=== PATIENT | female | born 1940 | race Caucasian/White ===

== ENCOUNTER 2017-05-29 08:40 | Inpatient (IN) | payer OTHER ==
[~2017-05-29] VITALS: Ht 152.4 cm; Wt 69.9 kg
[~2017-05-29 08:40] MED LIST: ADVAIR 100-501 EACH INH; CARDIZEM CD360 MG PO; CARDIZEM LA240 M1 PO; CLONAZEPAM 1 MG1 M1 PO; FUROSEMIDE PO; GLUCOPHAGE1000 MG PO; IMDUR 30 MG TAB30 M1 PO; LANOXIN 0.120.125 M1 PG; LASIX 20 MG TAB20 MG PO; LIPOFEN; LISINOPRIL5 MG PO; LOPRESSOR 50 MG50 M1 PO; LYRICA150 MG PO; NEURONTIN 300300 M1 PO; POTASSIUM CHLO10 ME1 PO; TRICOR145 MG PO; VITAMIN D-32000 UNIT PO
[2017-05-29 10:37] LABS: HEMATOCRIT 42.1 % (37.0-47.0); MCH 29.9 pg (26.0-34.0); MCHC 33.2 g/dL (28.0-37.0); MCV 89.9 fL (80.0-100.0); MPV 7.9 fl. (7.2-11.1); RBC 4.69 mil/uL (4.20-5.00); RDW-CV 13.7 % (10.5-14.5); WBC 6.8 thou/uL (4.0-11.0)
[2017-05-29 10:41] LABS: CALCIUM 8.8 mg/dL (8.5-10.1); CREATININE 0.7 mg/dL (0.6-1.3); POTASSIUM 4.4 mmol/L (3.5-5.1)
[2017-05-29 10:46] LABS: ALBUMIN 3.8 g/dL (3.4-5.0); TOTAL BILIRUBIN 0.5 mg/dL (<0.1-1.0); TOTAL PROTEIN 7.5 g/dL (6.4-8.2)
[2017-05-29] MEDS ORDERED: TOUJEO SOL300 UNIT/1 SUBQ ×3 (11:35→13:21)
[2017-05-29 11:36] VITALS: BP 133/74
--- NOTE | 2017-05-29 15:44 | EKG ---
[place] [address] ELECTROCARDIOGRAM REPORT Name: JORDYN COFFEY Room: [place] [address] ADM IN M.R.#: [id number] Admission: 05/29/17 Attend Phys: Jeremiah Garcia MD Discharge: Date of : 40 Report #: [id number] THIS REPORT FOR: //name// [facility] Test Date: 2017-05-29 Test Time: 10:28:56 Pat Name: JORDYN COFFEY Department: Room: [place] [address] Gender: F Radiographic Technologist: 27 : 1940 Requested By: Jeremiah Garcia Order Number: [id number] Rhea MD: Davion Ruano Measurements Intervals [place] Rate: 73 P: 57 [place]: 159 QRS: -9 QRSD: 97 T: 19 QT: 439 QTc: 484 Interpretive Statements Sinus rhythm Borderline T abnormalities, lateral leads Compared to ECG 12/29/2013 02:29:17 T-wave abnormality now present ST (T wave) deviation no longer present Electronically Signed On 05-29-2017 15:44:31 APPLICATIONS SUPPORT LEAD by Davion Ruano [email or web address] <ELECTRONICALLY SIGNED> By: Davion Ruano MD, [facility] 05/29/17 1544 1028 1028 Davion Ruano MD, [facility] /EPI
[2017-05-29 17:28] VITALS: BP 105/49
--- NOTE | 2017-05-29 19:33 | NUR ---
BAO RESTING IN BED. UNEVENTFUL DAY. VITAL SIGNS STABLE, NSR UP AD VERONICA. JEEVAN IS HERE FOR SOTALOL LOADING. HOURLY ROUNDING COMPLETED FOR PATIENT SAFETY AND MARY JANE PARTICIPATED IN PLAN OF CARE.
[2017-05-29 21:00] VITALS: BP 123/66
[2017-05-29 23:30] VITALS: BP 131/62
--- NOTE | 2017-05-30 03:50 | NUR ---
BEGAN CARE OF PT AT 1930, PT A/OX4, SR, RA, UP SBA/AD VERONICA, NO IV WITH DR YEAGER REPORTING NO IV IS NEEDED, ORDER ENTERED STATING SUCH, MEDS/ASSESSMENT PER CHARTING, HOURLY ROUNDING CONT, FALL PRECUATIONS IN PLACE, PT FREE FROM SOA/PAIN, CALL LIGHT IN REACH, WILL CONT TO MONITOR.
[2017-05-30 03:59] VITALS: BP 125/61
--- NOTE | 2017-05-30 06:59 | NUR ---
NO ACUTE CHANGES WITH PT OVER NIGHT, VS REMAIN STABLE, SR ON THE MONITOR, NO C/O PAIN/SOA, FALL PRECAUTIONS REMAIN IN PLACE, CALL LIGHT IN REACH AT ALL TIMES, WILL CONT TO MONITOR.
[2017-05-30 12:00] VITALS: BP 125/61
--- NOTE | 2017-05-30 13:29 | NUR ---
MET WITH PT TO DISCUSS HOME SITUATION/DC PLANNING. PT LIVES ALONE, HAS SUPPORTIVE FAMILY WHO ASSIST. SHE USES CANE AND IS INDEPENDENT AND ACTIVE. STILL DRIVES. DENIES ANY DC NEEDS. WILL FOLLOW
[2017-05-30 16:00] VITALS: BP 113/58
--- NOTE | 2017-05-30 17:03 | EKG ---
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: JOHN : 1940 Requested By: Jeremiah Garcia Order Number: [id number] Reading MD: Jermeiah Garcia Measurements Intervals [place] Rate: 77 P: 54 [place]: 158 QRS: -9 QRSD: 103 T: 6 QT: 400 QTc: 453 Interpretive Statements Sinus rhythm Borderline T wave abnormalities Compared to ECG 05/29/2017 10:28:56 No significant changes Electronically Signed On 05-30-2017 17:03:39 SEAMLESS TUBE MILL OPERATOR by Jeremiah Garcia [email or web address] <ELECTRONICALLY SIGNED> By: Jeremiah Garcia MD, [facility] 05/30/17 1703 D: [id number] Jeremiah Garcia MD, FACC /EPI
--- NOTE | 2017-05-30 19:10 | NUR ---
PATINET RESTING IN ROOM. UP AD VERONICA IN ROOM. PATINET HERE FOR SOTALOL LOADING. VITAL SIGNS STABLE ANDPAITNET IN NOAPPARENT DISTRESS AT THIS TIME. NSR ON MONITOR. PATINET EXPECTED TO DISCHARGE TO HOME TOMORROW AFTER SOTALOL LOADING IS COMPLETED. HOURLY ROUNDING COMPETED FOR PATINET SAFETY.
[2017-05-30 20:00] VITALS: BP 119/45
[2017-05-31] VITALS: BP 127/55
[2017-05-31 04:00] VITALS: BP 120/69
--- NOTE | 2017-05-31 04:35 | NUR ---
RESTING WITHOUT COMPLAINTS. BPS AND PULSE WITHIN NORMAL LIMITS. DENIES COMPLAINTS OF PAIN OR DISCOMFORT. UP AD VERONICA WITH STEADY GAIT. BED IN LOW POSITION, CALL LIGHT WITHIN REACH. NO SIGN OF DISTRESS AT THIS TIME. CONT. WITH CURRENT PLAN OF CARE AT THIS TIME.
[2017-05-31 08:15] VITALS: BP 123/72
--- NOTE | 2017-05-31 08:49 | NUR ---
ASSUMED PT. CARE AND RECEIVED REPORT AT 0730. PT A/OX4, VSS, MONITOR ON TRACING SR. PT. DENIES PAIN, EXCEPT CHRONIC LEG PAIN WHICH IS TREATED WITH NEUROTIN. FULL ASSESSMENT COMPLETED, REFER TO CHARTING. PT. ANTICIPATEDS DC TODAY. UP TO CHAIR FOR BREAKFAST. CALL LIGHT IN REACH, WILL CONTINUE WITH PLAN OF CARE.
[2017-05-31 11:07] VITALS: BP 123/72
[2017-05-31 11:09] VITALS: BP 123/72
[2017-05-31 11:36] VITALS: BP 103/52
[2017-05-31] MEDS ORDERED: XARELTO20 MG PO (11:36)
[2017-05-31] MEDS ORDERED: ATORVASTATIN CA40 MG PO (11:36)
[2017-05-31] MEDS ORDERED: SORINE 80 MG TA80 M1 PO (11:36)
[2017-05-31] MEDS ORDERED: ASPIR 8181 MG PO (11:37)
--- NOTE | 2017-05-31 12:45 | NUR ---
DC ORDERS RECEIVED. MONITOR REMOVED. PT. GIVEN DC INSTRUCTIONS, SCRIPTS, AND CARENOTES. PT. LEFT WITH FAMILY TO RETURN HOME IN PERSONAL VEHICLE, ALL BELONINGS ACCOUNTED FOR.
--- NOTE | 2017-05-31 17:58 | EKG ---
[place] [address] ELECTROCARDIOGRAM REPORT Name: JORDYN COFFEY Room: [place] [address] DIS IN M.R.#: [id number] Admission: 05/29/17 Attend Phys: Jeremiah Garcia MD Discharge: 05/31/17 Date of : 40 Report #: [id number] THIS REPORT FOR: //name// [facility] Test Date: 2017-05-31 Test Time: 09:16:07 Pat Name: JORDYN COFFEY Department: Room: [place] [address] Gender: F Sales Team Member: : 1940 Requested By: Jeremiah Garcia Order Number: [id number] Reading MD: Jeremiah Garcia Measurements Intervals [place] Rate: 69 P: 59 [place]: 154 QRS: -2 QRSD: 102 T: 15 QT: 409 QTc: 438 Interpretive Statements Sinus rhythm Minimal ST depression, anterolateral leads Compared to ECG 05/30/2017 09:35:23 ST (T wave) deviation now present T-wave abnormality no longer present Electronically Signed On 05-31-2017 17:58:01 CLINICAL NURSING PROFESSOR by Jeremiah Garcia [email or web address] <ELECTRONICALLY SIGNED> By: Jeremiah Garcia MD, FACC 05/31/17 1758 0916 Jeremiah Garcia MD, FACC /EPI
--- NOTE | 2017-06-16 18:01 | H ---
[address] [address] HISTORY AND PHYSICAL Name: JORDYN COFFEY Room: [address] IN M.R.#: [id number] Admission: 05/29/17 Attend Phys: Jeremiah Garcia MD Discharge: 05/31/17 Date of : 40 Report #: [id number] THIS REPORT FOR: //name// CC: Jeremiah Lopes DO REASON FOR ADMISSION: Sotalol loading. HISTORY OF PRESENT ILLNESS: The patient is a 76-year-old white female with paroxysmal atrial fibrillation. She is being admitted for sotalol loading. By echocardiogram, she has an ejection fraction of 50-55%. She has grade 1 diastolic heart failure. A nuclear stress test was normal. PAST MEDICAL HISTORY: 1. Paroxysmal atrial fibrillation. 2. Hypertension. 3. Hyperlipidemia. 4. Type 2 diabetes mellitus. 5. MS. HOME MEDICATIONS: Albuterol p.r.n., aspirin 81 mg daily, atorvastatin 40 mg daily, Celexa 20 mg daily, digoxin 125 mcg daily, diltiazem 360 mg daily, Advair Diskus 250/50 daily, gabapentin as directed, ____ as directed, DuoNeb inhaler as directed, isosorbide 20 mg as directed, lisinopril 5 mg as directed, prednisone taper as directed and ____ as directed. FAMILY HISTORY: Noncontributory. SOCIAL HISTORY: The patient does not smoke or drink alcohol. ALLERGIES: LIDOCAINE, ASPIRIN, CELEBREX, HYDROCODONE, SINGULAIR, AND ____. REVIEW OF SYSTEMS: Positive for palpitations, cough, shortness of breath, dizziness and lightheadedness, otherwise unremarkable. PHYSICAL EXAMINATION: VITAL SIGNS: Blood pressure 144/66 and heart rate 80. GENERAL: This is a pleasant elderly female, in no distress. Mood and affect appropriate. HEENT: Extraocular muscles are intact. Mucous membranes are moist. NECK: Shows no jugular venous distention. CHEST: Reveals clear lung peralta without wheezes, rales or rhonchi. CARDIOVASCULAR: Reveals a regular rhythm without gallop or murmur. ABDOMEN: Reveals normal bowel sounds. The abdomen is soft and nontender. EXTREMITIES: Shows no edema. Peripheral pulses 2+ and palpable. SKIN: [place] [address] HISTORY AND PHYSICAL Name: JORDYN COFFEY Room: [address]#: [id number] Admission: 05/29/17 Attend Phys: Jeremiah Garcia MD Discharge: 05/31/17 Date of : 40 Report #: [id number] IMPRESSION AND RECOMMENDATIONS: 1. Paroxysmal atrial fibrillation. Planned sotalol loading during this hospitalization. The patient is on Xarelto for anticoagulation. 2. Hypertension. Adequately controlled at this time. 3. Hyperlipidemia. Continue atorvastatin at current dose. <ELECTRONICALLY SIGNED> By: Jeremiah Garcia MD, FACC 06/16/17 1801 1841 1932Michaemadelyn Garcia MD, IMAN /nt
--- NOTE | 2017-06-16 18:01 | D ---
[facility] [address] [place] [address] DISCHARGE SUMMARY Name: JORDYN COFFEY Room: [address] IN M.R.#: [id number] Admission: 05/29/17 Attend Phys: Jeremiah Garcia MD Discharge: 05/31/17 Date of : 40 Report #: [id number] THIS REPORT FOR: //name// CC: Jeremiah Garcia Alberto Marianne DATE OF SERVICE: 05/31/2017 DISCHARGE DIAGNOSES: 1. Paroxysmal atrial fibrillation. 2. Hypertension. 3. Hyperlipidemia. 4. Type 2 diabetes mellitus . PROCEDURES DURING THE HOSPITALIZATION: 1. Telemetry monitoring. 2. Sotalol loading. 3. Serial echocardiograms. HOSPITAL COURSE: The patient was admitted for elective sotalol loading. Her hospital course was . She remained in sinus rhythm. QT intervals were within normal limits. She was discharged to home in stable condition. DISCHARGE MEDICATIONS: Include sotalol 80 mg p.o. b.i.d. and Xarelto 20 mg with dinner. DISPOSITION: The patient will follow up with cardiology in 1-2 weeks. <ELECTRONICALLY SIGNED> By: Jeremiah Garcia MD, [facility] 06/16/17 1801 1842 09Miceliza Garcia MD, FACC /nt
== END 2017-05-31 13:16 | disposition home or self-care (01) | DRG 309 ==
LOC: M.2W 08:40
PROVIDERS: ADMIT Internal Medicine Cardiovascular Disease
DX: I48.0 Paroxysmal atrial fibrillation (principal); I50.32 Chronic diastolic (congestive) heart failure; E78.5 Hyperlipidemia, unspecified; G35 Multiple sclerosis; I11.0 Hypertensive heart disease with heart failure; I47.1 Supraventricular tachycardia; E11.9 Type 2 diabetes mellitus without complications; Z79.899 Other long term (current) drug therapy; Z88.6 Allergy status to analgesic agent; Z88.8 Allergy status to other drugs, medicaments and biological substances

== ENCOUNTER 2018-03-06 11:53 | Inpatient (IN) | payer OTHER ==
[~2018-03-06] VITALS: Ht 152.4 cm; Wt 68.5 kg
[~2018-03-06 11:53] MED LIST changes: +ASPIR 8181 MG PO; +ATORVASTATIN CA40 MG PO; +SORINE 80 MG TA80 M1 PO; +TOUJEO SOL300 UNIT/1 SUBQ; +XARELTO20 MG PO
[2018-03-06 11:55] VITALS: BP 129/68
[2018-03-06 12:12] LABS: HEMATOCRIT 36.2 % (37.0-47.0); MCH 28.6 pg (26.0-34.0); MCHC 33.3 g/dL (28.0-37.0); MCV 85.8 fL (80.0-100.0); MPV 7.6 fl. (7.2-11.1); NUCLEATED RBCS 0 /100WBC; PLATELET COUNT* 190 thou/uL (150-400); RBC 4.21 mil/uL (4.20-5.00); RDW-CV 14.4 % (10.5-14.5); WBC 12.1 thou/uL (4.0-11.0)
[2018-03-06 12:18] LABS: CALCIUM 8.5 mg/dL (8.5-10.1); CREATININE 0.7 mg/dL (0.6-1.3); POTASSIUM 3.1 mmol/L (3.5-5.1)
[2018-03-06 12:20] LABS: APTT 29.6 Seconds (25.0-31.3); INR 1.2; PROTIME 12.2 Seconds (9.20-11.50)
[2018-03-06 12:25] LABS: TOTAL BILIRUBIN 0.7 mg/dL (<0.1-1.0)
[2018-03-06 12:27] LABS: TROPONIN-I LEVEL 1.13 ng/mL (<0.06)
[2018-03-06 12:52] LABS: ABSOLUTE BASOPHILS 0.1 thou/uL (0.0-0.2); ABSOLUTE LYMPHOCYTES 0.4 thou/uL (0.8-5.3); ABSOLUTE MONOCYTES 0.4 thou/uL (0.0-1.2); ABSOLUTE NEUTROPHILS 11.3 thou/uL (1.6-8.1); ANISOCYTOSIS 1+; PLATELET ESTIMATE ADEQUATE; POIKILOCYTOSIS 1+
[2018-03-06 13:13] LABS: URINE BILIRUBIN NEGATIVE (Negative); URINE BLOOD 3+ (Negative); URINE CLARITY CLEAR; URINE COLOR YELLOW; URINE GLUCOSE-RANDOM 1+ (Negative); URINE KETONES TRACE (Negative); URINE LEUKOCYTES-REFLEX 1+ (Negative); URINE NITRITE-REFLEX POSITIVE (Negative); URINE PROTEIN 1+ (Negative); URINE UROBILINOGEN 0.2 E.U./dl (0.2-1.0)
[2018-03-06 13:30] VITALS: BP 104/54
[2018-03-06 13:30] LABS: SQUAMOUS 4-10 Moderate /LPF (0-3); URINE RBC 3-10 Few /HPF (0-2)
[2018-03-06 13:31] LABS: CASTS None Seen /LPF (None Seen); CRYSTALS None Seen /LPF (None Seen)
[2018-03-06 14:37] LABS: CHOLESTEROL 78 mg/dL (<200); HDL CHOLESTEROL 42 mg/dL (>40); LDL CHOLESTEROL 27 mg/dL (<100); TC:HDL 1.9 Ratio (Not establshd); TRIGLYCERIDE 48 mg/dL (<150); VLDL 10 mg/dL (<40)
[2018-03-06 14:40] LABS: SERUM ASSESSMENT Clear
[2018-03-06 14:44] VITALS: BP 108/54
[2018-03-06 15:05] VITALS: BP 108/54
--- NOTE | 2018-03-06 16:38 | NUR ---
PT ARRIVED TO UNIT AROUND 1330. ASSESSMENT CHARTED. AFEBRILE. MEDS GIVEN. VITALS STABLE. WILL CONTINUE TO MONITOR.
--- NOTE | 2018-03-06 17:31 | EKG ---
[place] [address] ELECTROCARDIOGRAM REPORT Name: JORDYN COFFEY Room: [address] ADM IN M.R.#: [id number] Admission: 03/06/18 Attend Phys: René Gusman MD Discharge: Date of : 40 Report #: [id number] THIS REPORT FOR: //name// 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[employer] [place]: KATE : 1940 Requested By: Shreya Gonzalez Order Number: [id number] MD: Arthur Sullivan Measurements Intervals [place] Rate: 103 P: 55 [place]: 146 QRS: -9 QRSD: 90 T: -31 QT: 316 QTc: 414 Interpretive Statements Sinus tachycardia Ventricular bigeminy Nonspecific repol abnormality, diffuse leads Compared to ECG 05/31/2017 09:16:07 Ventricular premature complex(es) now present Sinus rhythm no longer present Electronically Signed On 03-06-2018 17:30:50 CDT by Arthur Sullivan [email or web address] <ELECTRONICALLY SIGNED> By: Arthur Sullivan MD, [facility] 03/06/18 1730 1216 1216 Arthur Sullivan MD, [facility] /EPI
[2018-03-06 19:20] VITALS: BP 103/55
[2018-03-07] VITALS (8 sets, daily range): BP systolic 101–133; BP diastolic 42–93
[2018-03-07 05:00] LABS: ABSOLUTE BASOPHILS 0.1 thou/uL (0.0-0.2); ABSOLUTE EOSINOPHILS 0.2 thou/uL (0.0-0.7); ABSOLUTE LYMPHOCYTES 1.8 thou/uL (0.8-5.3); ABSOLUTE NEUTROPHILS 7.5 thou/uL (1.6-8.1); BASOPHILS 0.5 %; EOSINOPHILS 1.7 %; HEMATOCRIT 28.2 % (37.0-47.0); LYMPHOCYTES 17.2 %; MCH 29.1 pg (26.0-34.0); MCHC 33.1 g/dL (28.0-37.0); MCV 87.8 fL (80.0-100.0); MONOCYTES 9.9 %; MPV 8.1 fl. (7.2-11.1); NUCLEATED RBCS 0 /100WBC; PLATELET COUNT* 177 thou/uL (150-400); POLYS 70.7 %; RBC 3.21 mil/uL (4.20-5.00); RDW-CV 14.3 % (10.5-14.5); WBC 10.5 thou/uL (4.0-11.0)
[2018-03-07 05:10] LABS: HEMOGLOBIN 9.3 gm/dL (12.0-15.0)
--- NOTE | 2018-03-07 05:14 | NUR ---
PT AAOX4 RESP REG AND UNLABORED SKIN W/D NO ACUTE DISTRESS NOTED. TELEMETRY PACK INTACT WITH ALARMS SET. PT STATED HER BLADDER DISCOMFORT HAS IMPROVED. VSS AND NO ACUTE CHANGES DURING SHIFT WILL CONTINUE TO MONITOR. O2 2L BNC INTACT. CRITICAL TROPONIN 0.88 RECIEVED AND MESSAGE SENT TO LAB VALUE TRENDING DOWN SO NO NEW ORDERS RECIEVED.
[2018-03-07 06:08] LABS: ALBUMIN 2.3 g/dL (3.4-5.0); CALCIUM 7.3 mg/dL (8.5-10.1); CREATININE 0.6 mg/dL (0.6-1.3); MAGNESIUM 1.8 mg/dL (1.8-2.4); TOTAL BILIRUBIN 0.3 mg/dL (<0.1-1.0); TOTAL PROTEIN 4.9 g/dL (6.4-8.2)
[2018-03-07 06:09] LABS: POTASSIUM 4.6 mmol/L (3.5-5.1)
--- NOTE | 2018-03-07 12:43 | NUR ---
ASSUMED CARE AT 0730. PATIENT ALERT AND ORIENTED. VSS AND RECORDED. CALL LIGHT WITHIN REACH. FALL PRECAUTIONS MAINTAINED. 98% OXYGEN SATURATION AT 2L VIA NASAL CANNULA. FOUND SLEEPING WHEN VISITED. HOURLY ROUNDING DONE FOR PATIENT SAFETY. ASSESMENT CHARTED. AFEBRILE. STANDBY WITH ASSIST. LISPORO NOT GIVEN BP WAS IN LOWER RANGE. IV LINE DRESSING CHANGED, TRANSPARENT DRESSING APPLIED. WILL CONTINUE TO MONITOR.
--- NOTE | 2018-03-07 14:38 | NUR ---
Pt is A&O. Resides at home alone. Active and independent. Pt has a cane that she uses for mobility and a home neb. No home o2. No hx of HH or SNF. Hx of outpt therapy. Supportive family that is involved in POC. Goal is to return home at mo. No needs anticipated.
--- NOTE | 2018-03-07 16:52 | NUR ---
PATIENT ALERT AND ORIENTED. VSS AND CHARTED. PATIENT STATED STINGING SENSATION WHILE PEEING. BOWEL ELIMINATION, A LITTLE STATED. POSITION CHANGED Q2. OXYGEN SAT MAINTAINED IN 2L OXYGEN VIA NASAL CANNULA. NOTED SLIGHTLY EXCORIATION OF THE SKIN AT THE UPPER SPINAL REGION. WILL CONTINUE TO MONITOR.
--- NOTE | 2018-03-07 18:03 | 2DMMODE ---
[place] [address] 2 D/M-MODE ECHOCARDIOGRAM Name: JORDYN COFFEY Room: [address] IN .R.#: [id number] Admission: 03/06/18 Attend Phys: René Gusman, Discharge: Date of : 40 Date of Service: 03/07/18 1803 Report #: [id number] THIS REPORT FOR: //name// APPROVED REPORT Study performed: 03/07/2018 16:00:35 EXAM: Comprehensive 2D, Doppler, and color-flow Echocardiogram Patient Location: Bedside BSA: 1.09 HR: 79 bpm BP: 129/59 mmHg Other Information Study Quality: Fair Indications Elevated Troponin 2D Dimensions IVSd: 10.51 (7-11mm) LVOT Diam: 20.54 (18-24mm) LVDd: 46.02 mm PWd: 7.43 (7-11mm) Ascending Ao: 34.36 (22-36mm) LVDs: 35.02 (25-40mm) Aortic Root: 32.02 mm Volumes Left Atrial Volume (Systole) LA ESV Index: 54.20 mL/m2 Aortic Valve AoV Peak Jj.: 1.37 m/s AO Peak Gr.: 7.50 mmHg LVOT Max P.34 mmHg AO Mean Gr.: 4.34 mmHg LVOT Mean P.60 mmHg LVOT Max V: 0.91 m/s AO V2 VTI: 26.59 cm LVOT Mean V: 0.58 m/s CURTIS (VTI): 2.10 cm2 LVOT V1 VTI: 16.88 cm AI Wilcox: 2.08 m/s2 AI PHT: 607.22 ms Mitral Valve E/A Ratio: 1.23 MV Decel. Time: 219.63 ms MV E Max Jj.: 0.71 m/[place] [address] 2 D/M-MODE ECHOCARDIOGRAM Name: JORDYN COFFEY Room: [address] IN .R.#: [id number] Admission: 03/06/18 Attend Phys: René Gusman, Discharge: Date of : 40 Date of Service: 03/07/18 1803 Report #: [id number] MV PHT: 63.69 ms MVA (PHT): 3.45 cm2 TDI E/Lateral E': 7.10 E/Medial E': 7.89 Medial E' Jj.: 0.09 m/s Lateral E' Jj.: 0.10 m/s Pulmonary Valve PV Peak Jj.: 0.66 m/s PV Peak Gr.: 1.75 mmHg Tricuspid Valve RAP Estimate: 5.00 mmHg TR Peak Gr.: 16.66 mmHg RVSP: 21.66 mmHg PA Pressure: 21.66 mmHg Left Ventricle The left ventricle is normal size. There is global hypokinesis of the left ventricle. There is normal left ventricular wall thickness. Left ventricular systolic function is moderately decreased. LVEF is 35-40%. Right Ventricle The right ventricle is normal size. The right ventricular systolic function is normal. Atria Left atrium is severely dilated. The right atrium size is normal. Aortic Valve The Aortic valve is mildly sclerotic. Mild aortic regurgitation. There is no aortic valvular stenosis. Mitral Valve There is mitral annular calcification. Mild to moderate mitral regurgitation. No evidence of mitral valve stenosis. Tricuspid Valve The tricuspid valve is normal in structure. Trace tricuspid regurgitation. Pulmonic Valve The pulmonary valve is normal in structure. Trace [place]mon[place] [address] 2 D/M-MODE ECHOCARDIOGRAM Name: JORDYN COFFEY Room: [address]#: [id number] Admission: 03/06/18 Attend Phys: René Gusman, Discharge: Date of : 40 Date of Service: 03/07/18 1803 Report #: [id number] Great Vessels The aortic root is normal in size. IVC is normal in size and collapses >50% with inspiration. Pericardium There is no pericardial effusion. <Conclusion> LVEF is 35-40%. Left atrium is severely dilated. Mild aortic regurgitation. Mild to moderate mitral regurgitation. <ELECTRONICALLY SIGNED> By: Arthur Sullivan MD, [facility] 03/07/181802 02 02 Arthur Sullivan MD, [facility] /INF
--- NOTE | 2018-03-07 19:06 | NUR ---
PATIENT IS ALERT AND ORIENTED. VSS AND CHARTED. STANDBY WITH ASSIST. SEEN SITTING IN CHAIR. OXYGEN TITRATED TO 1L SATURATION MAINTAINED AT 98%. STRSS TEST SCHEDULED FOR TOMMORROW. NO CAFFEINE FOR TOMMORROW AND LIGHT BREAKFAST. PROGRESSING TOWARDS GOAL.
[2018-03-08] VITALS (8 sets, daily range): BP systolic 98–136; BP diastolic 45–80
--- NOTE | 2018-03-08 04:30 | NUR ---
ASSUMED PT CARE AT 1930, PT IS A&OXS4, PT IS TRACING NSR ON THE MONITOR, ON RA SATTING MID TO HIGH 90'S. PT C/O A HEADACHE THROUGHOUT THE SHIFT, PRN MEDICATIONS GIVEN PER AUG. PT WENT INTO AFIB AROUND 2300 THIS SHIFT, EKG OBTAINED, EKG READS AFIB, NOTIFIED, CARDIZEM GTT STARTED, BOLUS GIVEN. BED IN LOW POSITION, CALL LIGHT IN REACH, BED ALARM ON, YELLOW ARM BAND AND SOCKS IN PLACE. HOURLY ROUNDING COMPLETED FOR PT SAFETY.
[2018-03-08 06:54] LABS: HEMATOCRIT 32.3 % (37.0-47.0); HEMOGLOBIN 10.8 gm/dL (12.0-15.0); MCH 28.9 pg (26.0-34.0); MCHC 33.3 g/dL (28.0-37.0); MCV 86.8 fL (80.0-100.0); MPV 7.8 fl. (7.2-11.1); RBC 3.72 mil/uL (4.20-5.00); RDW-CV 14.8 % (10.5-14.5); WBC 7.2 thou/uL (4.0-11.0)
[2018-03-08 06:58] LABS: CALCIUM 8.1 mg/dL (8.5-10.1); CREATININE 0.6 mg/dL (0.6-1.3); MAGNESIUM 1.8 mg/dL (1.8-2.4)
--- NOTE | 2018-03-08 10:36 | NUR ---
DISCHARGE PLANNNER SPOKE TO THE PATIENT TO DISCUSS DISCHARGE PLANNING NEEDS. PATIENT INFORMS THAT SHE DOES NOT ANTICIPATE ANY NEEDS AT D/C, AND DOES NOT WANT HH. CM WILL REMAIN AVIALABLE TO ASSIST AND FOLLOW NEEDED.
--- NOTE | 2018-03-08 16:26 | NUR ---
RECEIVED REPORT FROM JOHN VU. ASSUMED CARE OF PT AROUN 0830. PT A&O X4, A LITTEL ANXIOUS BUT CALMS EASILY. VSS. O2 SAT 93% ON RA. CREDIT REPRESENTATIVE IN PLACE TRACING SR. AM ASSESSMENT AND VITALS COMPLETED CHARTED. PT HAS REPORTED HEADACHE THAT HAS BEEN MANGED WITH PO PAIN MEDICATION WITH PARTIAL RELIEF. CARDIZEM DRIP STOPPED PER CARDILOGY, PT CONTINUES IN SR. PT TO HAVE STRESS TEST TOMORROW. FAMILY VISITED THIS AFTERNOON; GRANDDAUGHTER OF PT STATED "WE WOULD LIKE TO BE CALLED IN THE EVENT THAT MY GRANDMA HAS ANOTHER EPISODE LIKE LAST NIGHT." PT USING BEDSIDE COMMODE TO VOID WITH STANDBY ASSIST. PT EATING AND DRINKING WITHOUT ISSUE. PT CURRENTLY WATCHING TV IN BED. FALL PRECAUTIONS IN PLACE. CALL LIGHT IS WITHIN REACH, HOURLY ROUNDING PERFORMED. WCTM.
--- NOTE | 2018-03-08 16:34 | EKG ---
[place] [address] ELECTROCARDIOGRAM REPORT Name: ALEXXJORDYN CARDOSO Room: [address] ADM IN M.R.#: [id number] Admission: 03/06/18 Attend Phys: René Gusman MD Discharge: Date of : 40 Report #: [id number] THIS REPORT FOR: //name// [facility] Test Date: 2018-03-07 Test Time: 22:51:45 Pat Name: JORDYN COFFEY Department: Room: [address] Gender: F Forensic Manager: : 1940 Requested By: Andrae Ferrer Order Number: [id number] Rhea MD: Davion Ruano Measurements Intervals [place] Rate: 164 P: [place]: QRS: -15 QRSD: 83 T: -6 QT: 298 QTc: 493 Interpretive Statements Atrial fibrillation with rapid V-rate Borderline left axis deviation Borderline low voltage, extremity leads Repolarization abnormality, prob rate related Compared to ECG 03/06/2018 12:16:47 Sinus tachycardia no longer present Ventricular premature complex(es) no longer present Electronically Signed On 03-08-2018 16:33:49 CDT by Davion Ruano [email or web address] <ELECTRONICALLY SIGNED> By: Davion Ruano MD, [facility] 03/08/18 1633 2251 2251 Davion Ruano MD, [facility] /EPI
[2018-03-09] VITALS: BP 147/63
[2018-03-09 04:00] VITALS: BP 116/79; BP 151/75
--- NOTE | 2018-03-09 04:41 | NUR ---
PT RESTING COMFORTABLE IN BED. PT SR ON MONITOR. PT HAS BEEN NPO SINCE MIDNIGHT FOR AM STRESS TEST. PT VSS. AM LABS TO BE REVIEWED.
[2018-03-09 05:48] LABS: POTASSIUM 3.7 mmol/L (3.5-5.1)
[2018-03-09 05:49] LABS: CREATININE 0.6 mg/dL (0.6-1.3)
[2018-03-09 08:00] VITALS: BP 141/74
[2018-03-09 12:02] VITALS: BP 131/74
--- NOTE | 2018-03-09 15:14 | NUR ---
VSS, ASSUMED CARE IN THE AM, ASSESSMENT PERFORMED AND CHARTED, FALL PRECAUTIONS IN PLACE AND CALL LIGHT IN REACH, PT IS A&O4 AND ON RA, TRACING SR ON THE MONITOR, PT HAS SOME STOMACH PAIN, RATES IT 4-7 OUT OF 10, WILL FOLLOW WITH PLAN OF CARE, PT IS UP WITH ONE AND IS A LITTLE WEAK, PT GOAL IS TO COMPLETE STRESS TEST,
[2018-03-09 16:13] VITALS: BP 142/73
--- NOTE | 2018-03-09 18:32 | NUR ---
VSS, PT IS PROGRESSING TOWRDS GOAL, PT DENIES ANY PAIN, HAS COMPLETED STRESS TEST AND IS TRACING SR ON THE MONITOR, PT IS UP WITH ONE AND IS IN BED RESTING, HOURLY ROUNDS COMPLETED AND STRESS TEAT HAS BEEN COMPLETED.
--- NOTE | 2018-03-09 18:39 | CARDNUC ---
[place] [address] CARDIAC NUCLEAR IMAGING REPORT Name: JORDYN COFFEY Room: [address] IN [facility]#: [id number] Admission: 03/06/18 Attend Phys: René Gusman, Discharge: Date of : 40 Date of Service: 03/09/18 1839 Report #: [id number] THIS REPORT FOR: //name// APPROVED REPORT Imaging Protocol: Rest Tc-99m/Stress Tc-99m 1 day Study performed: 03/07/2018 14:45:00 Indication: Chest pain, Atrial Fibrillation, Dyspnea Patient Location: In-Patient Room #: 213 Stress Tech: Fatemeh Martinez Stress Nurse: Shaniqua Kirkpatrick RN NM Tech:INGA Mims Ht: 5 ft 0 in Wt: 156 lbs BSA: 1.68 m2 BMI: 30.46 Medical History Medical History: hx chf, pat, hypertension, diabetes Medications: xarelto, atorvastatin, isosorbide, sotolol, asa 81 Allergies: procaine, sulfa Cardiac Risk Factors: age, hypertension, diabetes Previous Cardiac Procedures: none Exercise History: Sedentary pt was given isosorbide on 03/08/18 2100. waited until afternoon on 03/[address] Ruano order Resting Data Rest SPECT myocardial perfusion imaging was performed in supine position 30 minutes following the intravenous injection of 10.8 mCi of Tc-99m Sestamibi. Time of rest injection: 804 Date: 03/09/2018 Time of rest imagin The images were gated to evaluate regional wall motion and calculate left ventricular ejection fraction. Administration Route: IV Pharmacologic Stress Pharmacologic stress test was performed by injecting Regadenoson 0.4 mg IV push over 10-15 seconds immediately followed by the intravenous injection of 29.4 mCi of Tc-99m Sestamibi. Time of stress injection: 1435 [place] [address] CARDIAC NUCLEAR IMAGING REPORT Name: JORDYN COFFEY Room: [address]#: [id number] Admission: 03/06/18 Attend Phys: René Gusman, Discharge: Date of : 40 Date of Service: 03/09/18 1839 Report #: [id number] Administration Route: IV Gated Stress SPECT was performed 40 minutes after stress injection. The images were gated to evaluate regional wall motion and calculate left ventricular ejection fraction. Prone imaging was performed. Stress Test Details Stress Test: Pharmacologic stress testing performed using 0.4 mg of regadenoson per 5 mL given IV over 10 seconds. Reason for pharmacologic stress test: physical limitation. 60 mg caffeine given for other. HR Max Heart Rate (APMHR): 143 bpm Resting HR: 82 bpm Target HR (85% APMHR): 121 bpm Max HR Achieved: 97 bpm % of APMHR: 67 Recovery HR: 90 bpm BP Resting BP: 135/66 mmHg Recovery BP: 137/82 mmHg ECG Resting ECG: Sinus Rhythm, nonspecific ST-T abnormalities Stress ECG: Sinus Rhythm, nonspecific ST-T abnormalities ST Change: None Arrhythmia: None Recovery ECG: Sinus Rhythm, nonspecific ST-T abnormalities Recovery ST Change: None Recovery Arrhythmia: None Clinical Reason for Termination: Completed protocol Stress Symptoms: pt co back pain Exercise duration: 0 min sec Exercise capacity: 1 METs The patient tolerated Lexiscan infusion without significant symptoms. Stress ECG Conclusion The baseline 12-lead EKG shows sinus rhythm with nonspecific ST segment depression diffusely. EKGs obtained during and post Lexiscan show sinus rhythm with no significant ST or T wave changes when compared baseline. There were [place] [address] CARDIAC NUCLEAR IMAGING REPORT Name: JORDYN COFFEY Room: [address]#: [id number] Admission: 03/06/18 Attend Phys: René Gusman, Discharge: Date of : 40 Date of Service: 03/09/18 1839 Report #: [id number] arrhythmias. Study Quality Study: Good Artifact: No artifact Study Data At rest, the left ventricular ejection fraction was 61%.. Post stress, the left ventricular ejection was 48%.. TID = 0.96. Perfusion Perfusion images show no defect to suggest infarct or ischemia. Wall Motion There is anteroseptal wall motion abnormality of uncertain significance. Global LV systolic function appears to be fairly well-preserved. Nuclear Conclusion ECG Findings: non-diagnostic Clinical Findings: negative for ischemia Nuclear Findings: negative for ischemia Exercise Capacity: not assessed Left Ventricular Function: preserved Myocardial perfusion images show no defect to suggest infarct or ischemia. Left ventricular systolic function shows wall motion abnormalities as outlined above. This is not a high risk study. <Conclusion> The baseline 12-lead EKG shows sinus rhythm with nonspecific ST segment depression diffusely. EKGs obtained during and post Lexiscan show sinus rhythm with no significant ST or T wave changes when compared baseline. There were no significant stress-induced arrhythmias. <ELECTRONICALLY SIGNED> By: Jeremiah Garcia MD, FACC 03/09/181838 38 38 Jeremiah Garcia MD, FACC /INF
[2018-03-09 20:30] VITALS: BP 135/61
[2018-03-10] VITALS: BP 138/70
[2018-03-10 04:00] VITALS: BP 124/54
[2018-03-10 06:10] LABS: CALCIUM 8.8 mg/dL (8.5-10.1); CREATININE 0.6 mg/dL (0.6-1.3); MAGNESIUM 2.3 mg/dL (1.8-2.4); POTASSIUM 4.2 mmol/L (3.5-5.1)
--- NOTE | 2018-03-10 06:41 | NUR ---
PATIENT ALERT AND ORIENTED X 4. VITALS STABLE. RA. SINUS RHYTHM ON YOUTH DIRECTOR. UP SBA TO BATHROOM. DENIES PAIN AND NAUSEA. NONPRODUCTIVE COUGH. SLEPT COMFORTABLY THROUGH THE NIGHT. HOURLY ROUNDS. BED ALARM IN USE. NURSING WILL CONTINUE TO MONITOR.
--- NOTE | 2018-03-10 10:00 | NUR ---
ASSUMED CARE OF PATIENT AFTER REC'G REPORT FROM VIVEK RN. PT IS A & O X4. ABLE TO COMMUNICATE NEEDS TO STAFF. O2 SATS: 95% RA. ASSESSMENT COMPLETE, DOCUMENTED. MEDS PER MAR. HOURLY ROUNDING. CALL LIGHT WITHIN REACH. PT UP WITH WALKER AND STANDBY ASSIST TO BATHROOM. 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
[2018-03-10 12:00] VITALS: BP 126/70
[2018-03-10 12:12] VITALS: BP 126/70
[2018-03-10 12:54] VITALS: BP 118/66
[2018-03-10] MEDS ORDERED: LEVAQUIN 750 M750 MG PO (13:10)
[2018-03-10] MEDS ORDERED: SPIRONOLACTONE25 M1 PO (13:11)
--- NOTE | 2018-03-10 13:15 | NUR ---
PT WITH COMPLETE DC ORDER IN CHART. DC INSTRUCTIONS AND MED LIST REVIEWED WITH PT AND FAMILY. ANSWERED QUESTIONS TO PT/FAMILY SATISFACTION. 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 PT IN POSSESSION OF ALL BELONGINGS. PT ASSISTED OFF UNIT BY NURSING STAFF AND FAMILY. DAUGHTER TO TRANSPORT PATIENT TO HOME BY PERSONAL CAR.
--- NOTE | 2018-03-11 13:55 | EKG ---
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: : 1940 Requested By: René Gusman Order Number: [id number] Reading MD: Francisco Martell Measurements Intervals [place] Rate: 82 P: 55 NM: 141 QRS: -19 QRSD: 95 T: -1 QT: 412 QTc: 482 Interpretive Statements Sinus rhythm Inferior infarct, old Compared to ECG 03/07/2018 22:51:45 Myocardial infarct finding now present Atrial fibrillation no longer present Early repolarization no longer present Electronically Signed On 03-11-2018 13:55:43 CDT by Francisco Martell [email or web address] <ELECTRONICALLY SIGNED> By: Bria Martell MD, [facility] 03/11/18 1355 1118 1118 Bria Martell MD, [facility] /EPI
== END 2018-03-10 16:27 | disposition home or self-care (01) | DRG 871 ==
LOC: M.ERS 11:53 → M.2W 13:55 → M.TBA-ER 13:55 → M.2W 15:23
PROVIDERS: Nurse Practitioner Family; ADMIT Internal Medicine
DX: A41.9 Sepsis, unspecified organism (principal); I21.A1 Myocardial infarction type 2; I50.33 Acute on chronic diastolic (congestive) heart failure; N10 Acute pyelonephritis; N39.0 Urinary tract infection, site not specified; N12 Tubulo-interstitial nephritis, not specified as acute or chronic; I42.9 Cardiomyopathy, unspecified; R65.20 Severe sepsis without septic shock; J44.9 Chronic obstructive pulmonary disease, unspecified; J45.909 Unspecified asthma, uncomplicated; E11.9 Type 2 diabetes mellitus without complications; I11.0 Hypertensive heart disease with heart failure; M81.0 Age-related osteoporosis without current pathological fracture; I48.0 Paroxysmal atrial fibrillation; G35 Multiple sclerosis; Z85.3 Personal history of malignant neoplasm of breast; Z90.11 Acquired absence of right breast and nipple; Z98.42 Cataract extraction status, left eye; Z98.41 Cataract extraction status, right eye; Z88.2 Allergy status to sulfonamides; Z88.8 Allergy status to other drugs, medicaments and biological substances; Z23 Encounter for immunization; Z79.899 Other long term (current) drug therapy

== ENCOUNTER 2020-09-08 12:32 | Emergency (ER) | payer OTHER ==
[~2020-09-08] VITALS: Ht 152.4 cm; Wt 63.5 kg
[~2020-09-08 12:32] MED LIST changes: +LEVAQUIN 750 M750 MG PO; +SPIRONOLACTONE25 M1 PO
[2020-09-08 12:56] LABS: URINE BLOOD TRACE (Negative); URINE CLARITY CLEAR; URINE COLOR YELLOW; URINE GLUCOSE-RANDOM NEGATIVE (Negative); URINE KETONES TRACE (Negative); URINE LEUKOCYTES TRACE (Negative); URINE NITRITE NEGATIVE (Negative); URINE PROTEIN NEGATIVE (Negative); URINE SPECIFIC GRAVITY >= 1.030 (1.005-1.030)
[2020-09-08 12:58] LABS: ICTOTEST (BILI CONFIRMATORY) Negative (Negative); URINE BILIRUBIN 1+ (Negative)
[2020-09-08 13:06] LABS: BACTERIA 1-9 Few /HPF (None Seen); CASTS None Seen /LPF (None Seen); CRYSTALS None Seen /LPF (None Seen); MUCUS >6 Heavy strn/LPF (None Seen); SQUAMOUS >10 Many /LPF (0-3); URINE RBC 3-10 Few /HPF (0-2); URINE WBC 0-5 Rare /HPF (0-5)
[2020-09-08 13:20] LABS: ABSOLUTE EOSINOPHILS 0.1 thou/uL (0.0-0.7); ABSOLUTE LYMPHOCYTES 1.3 thou/uL (0.8-5.3); ABSOLUTE NEUTROPHILS 10.2 thou/uL (1.6-8.1); BASOPHILS 0.2 %; EOSINOPHILS 0.8 %; HEMATOCRIT 39.5 % (37.0-47.0); HEMOGLOBIN 12.9 gm/dL (12.0-15.0); LYMPHOCYTES 10.1 %; MCH 27.6 pg (26.0-34.0); MCHC 32.6 g/dL (28.0-37.0); MCV 84.7 fL (80.0-100.0); MONOCYTES 8.1 %; MPV 7.5 fl. (7.2-11.1); NUCLEATED RBCS 0 /100WBC; PLATELET COUNT* 329 thou/uL (150-400); POLYS 80.8 %; RBC 4.66 mil/uL (4.20-5.00); RDW-CV 14.6 % (10.5-14.5); WBC 12.6 thou/uL (4.0-11.0)
[2020-09-08 13:35] LABS: CALCIUM 9.4 mg/dL (8.5-10.1); CREATININE 0.7 mg/dL (0.6-1.3)
[2020-09-08] MEDS ORDERED: NEURONTIN 300M300 M2 PO (13:38)
[2020-09-08] MEDS ORDERED: SERTRALINE HCL100 MG PO (13:38)
[2020-09-08] MEDS ORDERED: HUMALOG100 UNIT/1 SUBQ (13:38)
[2020-09-08 13:40] LABS: ALBUMIN 2.7 g/dL (3.4-5.0); TOTAL BILIRUBIN 0.9 mg/dL (<0.1-1.0); TOTAL PROTEIN 7.8 g/dL (6.4-8.2)
[2020-09-08] MEDS ORDERED: PEPCID40 MG PO (13:49)
[2020-09-08] MEDS ORDERED: ZOFRAN ODT4 MG PO (13:49)
[2020-09-08] MEDS ORDERED: KEFLEX500 M1 PO (13:49)
[2020-09-08 14:30] VITALS: BP 144/70
--- NOTE | 2020-09-08 17:01 | EKG ---
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[facility] : 1940 Requested By: Wilfredo Grossman Order Number: [id number] MD: Arthur Sullivan Measurements Intervals [place] Rate: 72 P: 19 RI: 140 QRS: -5 QRSD: 102 T: -11 QT: 415 QTc: 455 Interpretive Statements Sinus rhythm Borderline repolarization abnormality Compared to ECG 03/10/2018 11:18:57 no change Electronically Signed On 09-08-2020 17:01:34 CDT by Arthur Sullivan [email or web address] <ELECTRONICALLY SIGNED> By: Arthur Sullivan MD, FACBarry 09/08/20 1701 1247 1247 Arthur Sullivan MD, [facility] /EPI
== END 2020-09-08 14:30 | disposition home or self-care (01) ==
LOC: M.ERS 12:32
PROVIDERS: Emergency Medicine
DX: E86.0 Dehydration (principal); N39.0 Urinary tract infection, site not specified; K29.60 Other gastritis without bleeding; F15.90 Other stimulant use, unspecified, uncomplicated; J44.9 Chronic obstructive pulmonary disease, unspecified; E11.9 Type 2 diabetes mellitus without complications; I48.91 Unspecified atrial fibrillation; I11.0 Hypertensive heart disease with heart failure; I50.32 Chronic diastolic (congestive) heart failure; Z85.3 Personal history of malignant neoplasm of breast; Z90.11 Acquired absence of right breast and nipple; Z88.2 Allergy status to sulfonamides; Z88.8 Allergy status to other drugs, medicaments and biological substances; Z79.4 Long term (current) use of insulin

== ENCOUNTER → 2020-09-22 | Outpatient (CLI) | payer OTHER ==
[~2020-09-22] MED LIST changes: +HUMALOG100 UNIT/1 SUBQ; +KEFLEX500 M1 PO; +NEURONTIN 300M300 M2 PO; +PEPCID40 MG PO; +SERTRALINE HCL100 MG PO; +ZOFRAN ODT4 MG PO
[2020-09-22 10:04] LABS: CREATININE 0.7 mg/dL (0.6-1.3)
== END ==
LOC: M.LAB 09:30 → M.CT 11:30
DX: J44.9 Chronic obstructive pulmonary disease, unspecified (principal); K57.30 Diverticulosis of large intestine without perforation or abscess without bleeding; I50.9 Heart failure, unspecified; I60.9 Nontraumatic subarachnoid hemorrhage, unspecified; K76.89 Other specified diseases of liver; J90 Pleural effusion, not elsewhere classified; I70.0 Atherosclerosis of aorta; K40.90 Unilateral inguinal hernia, without obstruction or gangrene, not specified as recurrent; J98.11 Atelectasis

== ENCOUNTER → 2020-09-28 | Outpatient (CLI) | payer OTHER ==
[2020-09-28 10:30] LABS: HEMATOCRIT 38.7 % (37.0-47.0); HEMOGLOBIN 12.7 gm/dL (12.0-15.0); MCH 27.2 pg (26.0-34.0); MCHC 32.7 g/dL (28.0-37.0); MCV 83.1 fL (80.0-100.0); MPV 6.7 fl. (7.2-11.1); RBC 4.66 mil/uL (4.20-5.00); RDW-CV 14.7 % (10.5-14.5); WBC 10.8 thou/uL (4.0-11.0)
[2020-09-28 10:37] LABS: CALCIUM 10.2 mg/dL (8.5-10.1); CREATININE 0.6 mg/dL (0.6-1.3); POTASSIUM 4.8 mmol/L (3.5-5.1)
[2020-09-28 10:45] LABS: APTT 31.4 Seconds (25.0-31.3); INR 1.3; PROTIME 13.7 Seconds (9.20-11.50)
--- NOTE | 2020-09-28 14:35 | 2DMMODE ---
[place] [address] 2 D/M-MODE ECHOCARDIOGRAM Name: JANAE COFFEY Room: [facility]#: [id number] Admission: 09/28/20 Attend Phys: Brenda Corral RN Discharge: Date of : 40 Date of Service: 09/28/20 1435 Report #: [id number] THIS REPORT FOR: cc: Alberto Lopes Steve T. DO Holkins,Davion Suarez MD [facility] ~ APPROVED REPORT Study performed: 09/28/2020 09:12:17 EXAM: Comprehensive 2D, Doppler, and color-flow Echocardiogram Patient Location: Out-Patient BSA: 1.50 HR: 92 bpm BP: 142/80 mmHg Other Information Study Quality: Good Indications Dyspnea 2D Dimensions IVSd: 10.31 (7-11mm) LVOT Diam: 19.78 (18-24mm) LVDd: 47.25 mm PWd: 7.00 (7-11mm) Ascending Ao: 30.91 (22-36mm) LVDs: 23.73 (25-40mm) Aortic Root: 26.12 mm Volumes Left Atrial Volume (Systole) LA ESV Index: 14.00 mL/m2 Aortic Valve AoV Peak Jj.: 1.41 m/s AO Peak Gr.: 7.97 mmHg LVOT Max P.34 mmHg AO Mean Gr.: 3.77 mmHg LVOT Mean P.51 mmHg LVOT Max V: 0.91 m/s AO V2 VTI: 19.21 cm LVOT Mean V: 0.56 m/s CURTIS (VTI): 2.16 cm2 LVOT V1 VTI: 13.53 cm Mitral Valve E/A Ratio: 0.75 [place] [address] 2 D/M-MODE ECHOCARDIOGRAM Name: JANAE COFFEY Room: [facility]#: [id number] Admission: 09/28/20 Attend Phys: Brenda Corral RN Discharge: Date of : 40 Date of Service: 09/28/20 1435 Report #: [id number] MV Decel. Time: 215.48 ms MV E Max Jj.: 0.66 m/s MV PHT: 62.49 ms MVA (PHT): 3.52 cm2 TDI E/Lateral E': 8.25 E/Medial E': 7.33 Medial E' Jj.: 0.09 m/s Lateral E' Jj.: 0.08 m/s Pulmonary Valve PV Peak Jj.: 0.85 m/s PV Peak Gr.: 2.89 mmHg Left Ventricle The left ventricle is normal size. There is normal LV segmental wall motion. There is normal left ventricular wall thickness. Left ventricular systolic function is normal. The left ventricular ejection fraction is within the normal range. LVEF is 55-60%. Grade I - abnormal relaxation pattern. Right Ventricle The right ventricle is normal size. The right ventricular systolic function is normal. Atria The left atrium size is normal. The right atrium size is normal. Aortic Valve The aortic valve is normal in structure. No aortic regurgitation is present. There is no aortic valvular stenosis. Mitral Valve The mitral valve is normal in structure. Mild mitral regurgitation. No evidence of mitral valve stenosis. Tricuspid Valve The tricuspid valve is normal in structure. There is no tricuspid valve regurgitation noted. Pulmonic Valve The pulmonary valve is normal in structure. There is no pulmonic valvular regurgitation. Great Vessels The aortic root is normal in size. IVC [place] [address] 2 D/M-MODE ECHOCARDIOGRAM Name: JANAE COFFEY Room: [facility]#: [id number] Admission: 09/28/20 Attend Phys: Brenda Corral RN Discharge: Date of : 40 Date of Service: 09/28/20 1435 Report #: [id number] collapses >50% with inspiration. Pericardium There is no pericardial effusion. <Conclusion> The left ventricle is normal size. There is normal left ventricular wall thickness. Left ventricular systolic function is normal. The left ventricular ejection fraction is within the normal range. LVEF is 55-60%. Grade I - abnormal relaxation pattern. The right ventricle is normal size. The left atrium size is normal. The aortic valve is normal in structure. The mitral valve is normal in structure. Mild mitral regurgitation. The tricuspid valve is normal in structure. IVC is normal in size and collapses >50% with inspiration. There is no pericardial effusion. There is normal LV segmental wall motion. <ELECTRONICALLY SIGNED> By: Davion Ruano MD, FACC 09/28/20 1435 1435 1435 Davion Ruano MD, FACC /INF
== END | disposition home or self-care (01) ==
LOC: M.CRD 09-21 10:00 → M.ULTRA 13:00 → M.CRD 09-29 09:00 → M.LAB 09-30 12:00 → M.ULTRA 09-30 13:00 → M.CRD 09-30 14:00
PROVIDERS: ATTEND Registered Nurse
DX: R06.00 Dyspnea, unspecified (principal); I34.9 Nonrheumatic mitral valve disorder, unspecified; J90 Pleural effusion, not elsewhere classified; Z98.890 Other specified postprocedural states; Z79.899 Other long term (current) drug therapy

== ENCOUNTER → 2020-10-06 | Outpatient (CLI) | payer OTHER ==
[2020-10-06 14:17] LABS: BF LYMPHOCYTES 90 %; BF MONOCYTES 6 %; BF POLYS 4 %; BF TISSUE 14 /100 WBC
[2020-10-06 14:19] LABS: CLARITY CLOUDY; SOURCE THORACENTESIS; TOTAL VOLUME 1150 ml
[2020-10-06 14:23] LABS: TOTAL CELL COUNT 1040 /mm3
[2020-10-06 14:29] LABS: BF RBC 4812 /mm3
[2020-10-08 09:59] LABS: BODY FLUID LDH 205 IU/L (()); BODY FLUID PH 7.5 (Not Estab.); BODY FLUID PROTEIN 5.2 g/dL (())
[2020-10-08 11:47] LABS: SOURCE PLEURAL
== END ==
LOC: M.LAB 11:46
DX: J90 Pleural effusion, not elsewhere classified (principal); Z85.3 Personal history of malignant neoplasm of breast

== ENCOUNTER 2020-10-09 19:36 | Inpatient (IN) | payer OTHER ==
[~2020-10-09] VITALS: Ht 144.8 cm; Wt 59.0 kg
--- NOTE | ~2020-10-09 | PROC ---
[address] [address] PROCEDURE REPORT Name: JANAE COFFEY Room: [address] IN M.R.#: [id number] Admission: 10/09/20 Attend Phys: Andrae Ferrer MD Discharge: 10/12/20 Date of : 40 Report #: [id number] THIS REPORT FOR: cc: Alberto Lopes Steve T. DO REYNA,Medical Records Staff ~ For GI report, please see the Provation report in Perceptive 7 content. By: 0648Medical Records Staff REYNA /ONESIMO
--- NOTE | ~2020-10-09 | CON ---
[address] [address] CONSULTATION Name: JANAE COFFEY Room: [address] IN M.R.#: [id number] Admission: 10/09/20 Attend Phys: Andrae Ferrer MD Discharge: 10/12/20 Date of : 40 Report #: [id number] THIS REPORT FOR: cc: Alberto Lopes Steve T. DO Namin, Farid M. MD ~ DOC #: [id number] Brigette Vizcarra MD DATE OF CONSULTATION: 10/10/2020 REASON FOR CONSULTATION: Persistent nausea. HISTORY OF PRESENT ILLNESS: This is a 79-year-old female with long history of MS, who also has diabetes mellitus type 2 and AFib for which she is on Xarelto. She reports that she has held her Xarelto for the past couple of days. She complains of occasional dysphagia. She also used to have GERD but does not have any GERD symptoms. She denies any lower GI symptoms. She denies hematochezia, melena, change in stool habits or caliber. PAST MEDICAL HISTORY: Significant for CHF, AFib, gastroesophageal reflux disease, diabetes mellitus type 2, and hypertension. ALLERGIES: No known drug allergies. MEDICATIONS: Please refer to MAR. SOCIAL HISTORY: The patient lives at home. Denies tobacco or alcohol use. She is on Xarelto for AFib. FAMILY HISTORY: Noncontributory. PHYSICAL EXAMINATION: VITAL SIGNS: Reveals blood pressure of 117/58, respirations 18, pulse 70, and temperature 97.9. LUNGS: Clear. CARDIOVASCULAR: Regular. ABDOMEN: Soft, nontender, nondistended. Bowel sounds are positive. NEUROLOGIC: Patient is alert and oriented x 3. There are no focal neurologic deficits. LABORATORY DATA: Revealed sodium of 137, potassium 5.2, BUN is 18, creatinine 0.7, AST is 30, ALT is 31, alkaline phosphatase 97, total bilirubin is 0.3, lipase is 67. INR is 1.3. WBC is 10.1 with hemoglobin of 10.8 and platelets of 396. [place] [address] CONSULTATION Name: JANAE COFFEY Room: [address] IN [facility].#: [id number] Admission: 10/09/20 Attend Phys: Adnrae Ferrer MD Discharge: 10/12/20 Date of : 40 Report #: [id number] IMAGING: CT of abdomen and pelvis was obtained on admission. There is some right pleural fluid with basilar atelectasis and infiltrates. There is hepatic low density lesion which is consistent with a cyst. ASSESSMENT AND PLAN: The patient with persistent nausea, history of gastroesophageal reflux disease and dysphagia, who used to take Xarelto for atrial fibrillation until 2 days ago. I will proceed with upper endoscopy to evaluate her dysphagia and nausea symptoms. We will rule out gastroduodenal ulcers and gastric outlet partial obstruction. Her nausea may be related to GERD as well. If I do not find any reason for her nausea, we will consider gastric emptying test. Brigette Vizcarra MD [facility] By: 1347 33Brigette Vizcarra MD /nt
[~2020-10-09 19:36] MED LIST changes: -ATORVASTATIN CA40 MG PO; +LIPITOR40 MG PO
[2020-10-09 19:50] VITALS: BP 100/61
[2020-10-09 20:35] LABS: ABSOLUTE BASOPHILS 0.1 thou/uL (0.0-0.2); ABSOLUTE EOSINOPHILS 0.1 thou/uL (0.0-0.7); ABSOLUTE LYMPHOCYTES 1.5 thou/uL (0.8-5.3); ABSOLUTE MONOCYTES 1.1 thou/uL (0.0-1.2); ABSOLUTE NEUTROPHILS 7.4 thou/uL (1.6-8.1); EOSINOPHILS 1.2 %; HEMATOCRIT 33.5 % (37.0-47.0); HEMOGLOBIN 10.8 gm/dL (12.0-15.0); LYMPHOCYTES 14.5 %; MCH 26.7 pg (26.0-34.0); MCHC 32.1 g/dL (28.0-37.0); MCV 83.2 fL (80.0-100.0); MONOCYTES 10.4 %; MPV 6.9 fl. (7.2-11.1); NUCLEATED RBCS 0 /100WBC; PLATELET COUNT* 396 thou/uL (150-400); POLYS 72.9 %; RBC 4.03 mil/uL (4.20-5.00); RDW-CV 15.2 % (10.5-14.5); WBC 10.1 thou/uL (4.0-11.0)
[2020-10-09 20:44] LABS: CALCIUM 9.1 mg/dL (8.5-10.1); CREATININE 0.8 mg/dL (0.6-1.3); POTASSIUM 5.6 mmol/L (3.5-5.1)
[2020-10-09 20:55] LABS: ALBUMIN 2.3 g/dL (3.4-5.0); TOTAL BILIRUBIN 0.3 mg/dL (<0.1-1.0); TOTAL PROTEIN 7.8 g/dL (6.4-8.2)
[2020-10-09 21:12] LABS: URINE BILIRUBIN NEGATIVE (Negative); URINE BLOOD NEGATIVE (Negative); URINE COLOR YELLOW; URINE GLUCOSE-RANDOM NEGATIVE (Negative); URINE KETONES NEGATIVE (Negative); URINE LEUKOCYTES-REFLEX 1+ (Negative); URINE NITRITE-REFLEX NEGATIVE (Negative); URINE PROTEIN NEGATIVE (Negative); URINE UROBILINOGEN 0.2 E.U./dl (0.2-1.0)
[2020-10-09 21:14] LABS: URINE CLARITY CLOUDY
[2020-10-09 21:20] LABS: SQUAMOUS >10 Many /LPF (0-3)
[2020-10-09 21:21] LABS: BACTERIA-REFLEX 1-9 Few /HPF (None Seen); CASTS None Seen /LPF (None Seen); CRYSTALS None Seen /LPF (None Seen); URINE RBC None Seen /HPF (0-2); URINE WBC-REFLEX 0-5 Rare /HPF (0-5)
[2020-10-09 22:55] VITALS: BP 120/41
[2020-10-09 23:01] VITALS: BP 122/64
[2020-10-10 08:30] VITALS: BP 117/58
--- NOTE | 2020-10-10 12:31 | EKG ---
[place] [address] ELECTROCARDIOGRAM REPORT Name: JANAE COFFEY Room: [address] ADM IN .R.#: [id number] Admission: 10/09/20 Attend Phys: Andrae Ferrer, Discharge: Date of : 40 Date of Service: 10/09/201948 Report #: [id number] THIS REPORT FOR: //name// [facility] ED Test Date: 2020-10-09 Test Time: 19:49:06 Pat Name: JANAE COFFEY Department: Room: 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
[2020-10-10 12:56] VITALS: BP 117/58
[2020-10-10 14:23] LABS: CALCIUM 9.1 mg/dL (8.5-10.1); CREATININE 0.7 mg/dL (0.6-1.3); POTASSIUM 5.2 mmol/L (3.5-5.1)
[2020-10-10 20:00] VITALS: BP 129/59
[2020-10-11 00:37] VITALS: BP 108/42
[2020-10-11 04:11] VITALS: BP 116/50
[2020-10-11 05:10] LABS: HEMATOCRIT 30.6 % (37.0-47.0); HEMOGLOBIN 9.6 gm/dL (12.0-15.0); MCH 26.3 pg (26.0-34.0); MCHC 31.3 g/dL (28.0-37.0); MPV 7.2 fl. (7.2-11.1); RBC 3.65 mil/uL (4.20-5.00); RDW-CV 14.8 % (10.5-14.5); WBC 8.2 thou/uL (4.0-11.0)
[2020-10-11 05:18] LABS: CALCIUM 9.1 mg/dL (8.5-10.1); CREATININE 0.5 mg/dL (0.6-1.3); POTASSIUM 4.6 mmol/L (3.5-5.1)
[2020-10-11 08:10] VITALS: BP 119/81
[2020-10-11 16:00] VITALS: BP 94/41
[2020-10-11 20:00] VITALS: BP 153/64
[2020-10-12 04:51] LABS: HEMATOCRIT 32.6 % (37.0-47.0); HEMOGLOBIN 10.3 gm/dL (12.0-15.0); MCH 26.3 pg (26.0-34.0); MCHC 31.6 g/dL (28.0-37.0); MCV 83.2 fL (80.0-100.0); MPV 6.9 fl. (7.2-11.1); RBC 3.92 mil/uL (4.20-5.00); WBC 7.3 thou/uL (4.0-11.0)
[2020-10-12 05:14] LABS: CALCIUM 8.8 mg/dL (8.5-10.1); CREATININE 0.6 mg/dL (0.6-1.3); POTASSIUM 4.4 mmol/L (3.5-5.1)
[2020-10-12 08:10] VITALS: BP 132/64
[2020-10-12] MEDS ORDERED: PROTONIX40 M2 PO (08:40)
[2020-10-12 10:45] VITALS: BP 132/64
[2020-10-12 14:35] VITALS: BP 132/64
[2020-10-12] MEDS ORDERED: ZOFRAN ODT4 MG DISSOLVE (14:40)
--- NOTE | 2020-10-14 13:08 | PATH ---
[address] [address] PATHOLOGY RPT PROCEDURE Name: JANAE MILLIGAN Room: [address] IN M.R.#: [id number] Admission: 10/09/20 Date of : 40 Discharge: 10/12/20 Report #: [id number] Path Case #: [id number] [facility] Accession Number: [id number] . 01 Material submitted: . PART A: duodenum - DUODENAL BIOPSY PART B: stomach - ANTRAL BIOPSY FOR EROSIONS . 01 Clinical history: . PNEUMONIA, FAILURE TO THRIVE, INTRACTABLE NAUSEA SCHATSKI RING, GRADE A ESOPHAGITIS, GASTRITIS, DUODENITIS, HIATAL HERNIA . 02 Diagnosis: A. Duodenal biopsy: - Severe nonspecific active duodenitis, negative for granulomas, viral inclusions and dysplasia/adenomatous change. . B. 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 . (KAMRAN:elizabeth; 10/13/2020) . Special stain on B: H. pylori immuno MBR 10/13/2020 1701 Local . 02 Electronically signed: . Shine Jeong MD, Pathologist NPI- [id number] . 01 Gross description: . A. Received in formalin labeled "Janae Milligan and duodenal biopsy received are 2 howell-brown soft tissue fragments ranging from 0.3-0.4 cm. Specimen is entirely submitted in cassette A1. . B. Received in formalin labeled "Janae Milligan and antral biopsy for erosions". Received is a howell-brown soft tissue fragment measuring 0.4 x 0.4 x 0.2 cm. Specimen is entirely submitted in cassette B1.([facility]; 10/12/2020) [facility] 10/12/2020 1925 Local . 02 Pathologist provided ICD-10: K29.80, K29.50 . 02 CPT . 862706, 445708, N04573 Specimen Comment: A courtesy copy of this report has been sent to [phone], [place] [address] PATHOLOGY RPT PROCEDURE Name: JANAE MILLIGAN Room: [address] IN M.R.#: [id number] Admission: 10/09/20 Date of : 40 Discharge: 10/12/20 Report #: [id number] Path Case #: [id number] Specimen Comment: [phone], Specimen Comment: Report sent to ,DR IBRAHIM / DR DELATORRE Performed at: [id number] [facility] [address], [place], [place] [id number] MD Cesario Means MD Phone: [phone] Performed at: 02 [facility] [address], [place], [place] [id number] MD Shine Jeong MD Phone: [phone]
== END 2020-10-12 14:50 | disposition home health service (06) | DRG 177 ==
LOC: M.ERS 19:36 → M.TBA-ER 21:26 → M.ORTHSURG 21:26
PROVIDERS: Anesthesiology; Family Medicine; Physician Assistant; ADMIT Internal Medicine; ATTEND Internal Medicine
PROC: 0D738ZZ Dilation of Lower Esophagus, Via Natural or Artificial Opening Endoscopic (ICD-10-PCS; principal; 2020-10-10)
PROC: 0DB68ZX Excision of Stomach, Via Natural or Artificial Opening Endoscopic, Diagnostic (ICD-10-PCS; principal; 2020-10-10)
PROC: 0DB98ZX Excision of Duodenum, Via Natural or Artificial Opening Endoscopic, Diagnostic (ICD-10-PCS; principal; 2020-10-10)
DX: J15.6 Pneumonia due to other Gram-negative bacteria (principal); E43 Unspecified severe protein-calorie malnutrition; E87.1 Hypo-osmolality and hyponatremia; N39.0 Urinary tract infection, site not specified; I50.32 Chronic diastolic (congestive) heart failure; K31.9 Disease of stomach and duodenum, unspecified; K21.00 Gastro-esophageal reflux disease with esophagitis, without bleeding; K22.2 Esophageal obstruction; E11.9 Type 2 diabetes mellitus without complications; K44.9 Diaphragmatic hernia without obstruction or gangrene; G35 Multiple sclerosis; R62.7 Adult failure to thrive; E87.5 Hyperkalemia; D64.9 Anemia, unspecified; I11.0 Hypertensive heart disease with heart failure; I48.0 Paroxysmal atrial fibrillation; J44.9 Chronic obstructive pulmonary disease, unspecified; Z20.822 Contact with and (suspected) exposure to COVID-19; Z68.38 Body mass index [BMI] 38.0-38.9, adult; Z85.3 Personal history of malignant neoplasm of breast; Z90.11 Acquired absence of right breast and nipple; Z98.42 Cataract extraction status, left eye; Z98.41 Cataract extraction status, right eye; Z79.4 Long term (current) use of insulin; Z79.899 Other long term (current) drug therapy; Z88.2 Allergy status to sulfonamides; Z88.8 Allergy status to other drugs, medicaments and biological substances; Z68.28 Body mass index [BMI] 28.0-28.9, adult